=== PATIENT | female | born 1955 | race Caucasian/White ===

== ENCOUNTER → 2016-12-29 | Outpatient (CLI) | payer BC ==
[~2016-12-29] MED LIST: ACET-1138 PO; ASPI1TAB83 PO; CLB/200 PO; CLC100 PO; HYDR0.5T PO; LVNIS40 SQ; METH2.5T PO; MULT-589 PO; OXYSR10 PO; PRT40 PO; RXC5 PO; SNK PO; TRAM-10 PO
--- NOTE | 2016-12-29 17:27 | ECHOCARDIOGRAM REPORT ---
*NOTICE TO RECEIVING DEMOCRAT AGENCY This information is strictly Confidential and protected under [place] law. [place] law prohibits you from making any further disclosure of this information unless further disclosure is expressly permitted by the written consent of the person to whom it pertains or is authorized by law. A general authorization for the release of medical or other information is not sufficient for this purpose. Hospital accepts no responsibility if the information is made available to any other person, INCLUDING THE PATIENT. Interpretation Summary * Name: MARCELLE THAKUR Study Date: 12/29/2016 01:52 PM BP: 118/70 mmHg * Patient Location: [facility] HR: 88 * : 1955 (M/d/yyyy) Gender: Female Height: 67 in * Age: 61 yrs Ethnicity: [place] Weight: 183 lb * Ordering Physician: Heike Saenz * Referring Physician: Heike Saenz . PA-C * Performed By: Arianna Vernon * * Reason For Study: VALVULAR HEART DISEASE * BSA: 1.9 m2 * -- Conclusions -- * 1. Normal LV size. Mild concentric LVH with basal septal asymmetric hypertrophy. * 2. Normal LV systolic function. LVEF 60-65%. No regional wall motion abnormalities. * 3. Mildly dilated RA and RV. Normal RV function. No pulmonary hypertension. * 4. Mild mitral regurgitation. * 5. No prior studies for comparison. Procedure Details * A complete two-dimensional transthoracic echocardiogram was performed (2D, M-mode, Doppler and color flow Doppler). Left Ventricle * The left ventricle is grossly normal size. * There is mild concentric left ventricular hypertrophy. * Focal thickening of the basal septum with no evidence of left ventricular outflow obstruction. * Ejection Fraction = 60-65%. * No regional wall motion abnormalities noted. Right Ventricle * The right ventricle is mildly dilated. * The right ventricular systolic function is normal as assessed by tricuspid annular plane systolic excursion (TAPSE) (normal >1.5 cm). Atria * The left atrial size is normal. * The right atrium is mildly dilated. * No ASD detected; PFO is not assessed. Mitral Valve * The mitral valve is grossly normal. * There is no mitral valve stenosis. * There is mild mitral regurgitation. Tricuspid Valve * The tricuspid valve is not well visualized, but is grossly normal. * There is no tricuspid stenosis. * There is trace tricuspid regurgitation. Aortic Valve * The aortic valve opens well. * The aortic valve is trileaflet. * No hemodynamically significant valvular aortic stenosis. * Trace aortic regurgitation. Pulmonic Valve * The pulmonic valve is not well seen, but is grossly normal. * There is no pulmonic valvular stenosis. * Trace pulmonic valvular regurgitation. Great Vessels * The aortic root and proximal ascending aorta are normal sized. * No Doppler or imaging evidence of an aortic coarctation. Pericardium/Pleural * There is no pericardial effusion. * There is no pleural effusion. Great Vessels * IVC 2.2, >50% change with respiration. Est RA pressure 8 mmHg. * There is no evidence of pulmonary hypertension. The PA systolic pressure is less than 36 mmHg. Left Ventricular Diastolic Function * No diastolic dysfunction. MMode 2D Measurements and Calculations IVSd 1.7 cm IVSs 2.4 cm LVIDd 3.5 cm LVIDs 2.0 cm LVPWd 1.2 cm LVPWs 1.8 cm IVS/LVPW 1.4 FS 42.5 % EDV(Teich) 50.6 ml ESV(Teich) 12.9 ml EF(Teich) 74.6 % EDV(cubed) 42.6 ml ESV(cubed) 8.1 ml EF(cubed) 81.0 % % IVS thick 40.7 % % LVPW thick 54.6 % LV mass(C)d 176.0 grams LV mass(C)dI 90.4 grams/m\S\2 LV mass(C)s 188.5 grams LV mass(C)sI 96.8 grams/m\S\2 SV(Teich) 37.7 ml SI(Teich) 19.4 ml/m\S\2 SV(cubed) 34.5 ml SI(cubed) 17.7 ml/m\S\2 ACS 1.2 cm LA dimension 3.9 cm asc Aorta Diam 4.0 cm LVOT diam 2.0 cm LVOT area 3.1 cm\S\2 LVAd ap4 31.5 cm\S\2 LVLd ap4 8.2 cm EDV(MOD-sp4) 95.8 ml EDV(sp4-el) 102.3 ml LVAs ap4 13.8 cm\S\2 LVLs ap4 6.3 cm ESV(MOD-sp4) 24.5 ml ESV(sp4-el) 25.6 ml EF(MOD-sp4) 74.4 % EF(sp4-el) 75.0 % LVAd ap2 29.0 cm\S\2 LVLd ap2 8.5 cm EDV(MOD-sp2) 83.3 ml EDV(sp2-el) 84.3 ml LVAs ap2 12.2 cm\S\2 LVLs ap2 5.9 cm ESV(MOD-sp2) 21.4 ml ESV(sp2-el) 21.4 ml EF(MOD-sp2) 74.3 % EF(sp2-el) 74.6 % LVLd %diff 2.6 % EDV(MOD-bp) 88.3 ml LVLs %diff -6.39 % ESV(MOD-bp) 23.7 ml EF(MOD-bp) 73.1 % SV(MOD-sp4) 71.3 ml SI(MOD-sp4) 36.6 ml/m\S\2 SV(MOD-sp2) 61.9 ml SI(MOD-sp2) 31.8 ml/m\S\2 SV(MOD-bp) 64.6 ml SI(MOD-bp) 33.2 ml/m\S\2 SV(sp4-el) 76.7 ml SI(sp4-el) 39.4 ml/m\S\2 SV(sp2-el) 62.9 ml SI(sp2-el) 32.3 ml/m\S\2 Doppler Measurements and Calculations MV E max marlen 100.8 cm/sec MV A max marlen 76.0 cm/sec MV E/A 1.3 MV dec time 0.25 sec Ao V2 max 135.9 cm/sec Ao max PG 7.4 mmHg Ao max PG (full) 1.3 mmHg CHARLES(V,A) 2.8 cm\S\2 CHARLES(V,D) 2.8 cm\S\2 LV V1 max PG 6.0 mmHg LV V1 max 122.9 cm/sec MR max marlen 515.9 cm/sec MR max PG 106.5 mmHg PA V2 max 84.1 cm/sec PA max PG 2.8 mmHg PI end-d marlen 111.8 cm/sec TR max marlen 228.3 cm/sec
== END | disposition home or self-care (01) ==
LOC: C.CPL 13:35
PROVIDERS: ATTEND Physician Assistant Medical
DX: I51.9 Heart disease, unspecified (principal); R01.1 Cardiac murmur, unspecified